=== PATIENT | male | born 1940 | race Caucasian/White ===

== ENCOUNTER 2024-05-02 18:24 | Inpatient (IN) | payer OTHER, MEDICARE ==
[~2024-05-02] VITALS: Ht 190.5 cm; Wt 61.2 kg
[~2024-05-02 18:24] MED LIST: ASPI-1155 PO; B-COMPLEX PO; DILT240C95 PO; DUTA0.5C PO; FINA5TAB11 PO; FISH OIL PO; GEMF600T89 PO; MULTI VIT PO; NITRO SL; VIT E PO
[2024-05-02 18:30] VITALS: BP_SYST 115; PULSE 120; RESP 18; TEMP 98.3; O2SAT 97
[2024-05-02 19:15] LABS: HEMATOCRIT 38.6 % (36-54); MEAN CORPUSCULAR HEMOGLOBIN 32 pg (27-31); MEAN CORPUSCULAR HGB CONC 34 % (32-36); MEAN CORPUSCULAR VOLUME 95 fL (79.0-98.0); PLATELET COUNT (AUTO) 248 K/uL (130-430); RED BLOOD CELL COUNT(AUTO) 4.07 MIL/uL (4.2-6.2); RED CELL DISTRIBUTION WIDTH 14.6 % (9.0-15.0); WHITE BLOOD COUNT (AUTO) 22.9 K/uL (4.8-10.8)
[2024-05-02 19:29] LABS: BAND % (MANUAL) 3 % (0-6); BASOPHILS % (MANUAL) 0 % (0-2); EOSINOPHILS % (MANUAL) 0 % (0-7); LYMPHOCYTES % (MANUAL) 1 % (20-46); MONOCYTES % (MANUAL) 0 % (0-11); PLATELET ESTIMATE ADEQUATE (ADEQUATE)
[2024-05-02 19:31] LABS: PROTHROMBIN TIME 20.1 SECS (9.5-12.5)
[2024-05-02 19:45] LABS: ANION GAP 14 (5-15); CALCIUM 9.2 mg/dL (8.4-11.0); CARBON DIOXIDE 22 mmol/L (23-29); CHLORIDE 102 mmol/L (98-107); CREATININE 1.64 mg/dL (0.55-1.30); GLUCOSE 109 mg/dL (74-106); POTASSIUM 3.7 mmol/L (3.5-5.1); SODIUM SERUM 138 mmol/L (136-145); UREA NITROGEN, BLOOD 65 mg/dL (8-21)
[2024-05-02] MEDS ORDERED: PIPERACILLIN/TAZOBACTAM 3.375 GM/VIAL (ZOSYN) IV ONE (20:33)
[2024-05-02] MEDS: levETIRAcetam 500 MG IV PREMIX 100 ML IV ONE (20:56)
[2024-05-02] MEDS: NS 500 ML IV ONE (20:56)
[2024-05-02] MEDS: NACL 0.9% 1,000 ML IV ONE (20:56)
[2024-05-02] MEDS: PIPERACILLIN/TAZO 3.375 GM in NS 50 ML IV ONE (20:57)
[2024-05-02] MEDS: NITROGLYCERIN 1 INCH (GM) OINT. TP ONE (21:09)
[2024-05-02] MEDS ORDERED: LIOT5TAB11 PO (22:48)
[2024-05-02] MEDS ORDERED: LEVO88TA5 PO (22:48)
[2024-05-02] MEDS ORDERED: SIMV5TAB59 PO (22:48)
[2024-05-02] MEDS ORDERED: DABI150C PO (22:48)
[2024-05-02] MEDS ORDERED: NALOXONE HCL 0.4 MG/ML AMP (NARCAN) IVP PRN ×2 (23:45)
[2024-05-02] MEDS ORDERED: ONDANSETRON HCL 4 MG/2 ML VIAL IVP PRN (23:45)
[2024-05-02 23:51] LABS: BILIRUBIN,URINE NEGATIVE (NEGATIVE); COLOR,URINE YELLOW (YELLOW); GLUCOSE,URINE NEGATIVE (NEGATIVE); KETONES,URINE 1+ (NEGATIVE); LEUKOCYTE ESTERASE ,URINE NEGATIVE (NEGATIVE); NITRITE, URINE NEGATIVE (NEGATIVE); PH,URINE 5.5 (5.0-8.0); PROTEIN URINE TRACE (NEGATIVE); UROBILINOGEN,URINE 0.2 (0.2-1.0)
[2024-05-03] VITALS (35 sets, daily range): BP systolic 107–153; PULSE 84–119; RESP 13–35; TEMP 96–98.2; O2SAT 88–100
[2024-05-03 00:17] LABS: BLOOD, URINE 1+ (NEGATIVE); CLARITY/URINE SLIGHTLY CLOUDY (CLEAR)
[2024-05-03 00:19] LABS: WBC,URINE 0-3 /HPF (0-3)
[2024-05-03 00:20] LABS: BACTERIA,URINE RARE /HPF (None Seen)
[2024-05-03] MEDS: D5/0.45 NS 1,000 ML IV SCH (02:25)
[2024-05-03] MEDS: PIPERACILLIN/TAZOBACTAM 3.375 GM/VIAL (ZOSYN) IV ONE (02:25)
[2024-05-03] MEDS: ALBUTEROL SULFATE 0.083% 2.5 MG/3 ML VIAL.NEB INH SCH (03:02)
[2024-05-03] MEDS: IPRATROPIUM BROM 0.5 MG/2.5 ML VIAL.NEB (ATROVENT) INH SCH (03:02)
[2024-05-03] MEDS: PIPERACILLIN/TAZO 3.375/DEX-IS 50 ML IV SCH (03:39)
[2024-05-03] MEDS: HYDROcodone/ACETAMIN 10-325 MG TAB PO PRN (04:44)
[2024-05-03 05:00] LABS: BASOPHILS % (AUTO) 0.1 % (0.0-2.0); EOSINOPHILS % (AUTO) 0.2 % (0.0-4.0); HEMATOCRIT 33.4 % (36-54); HEMOGLOBIN 11.1 g/dL (14.0-18.0); LYMPHOCYTES # (AUTO) 0.4 K/uL (1.0-5.5); MEAN CORPUSCULAR HEMOGLOBIN 32 pg (27-31); MEAN CORPUSCULAR HGB CONC 33 % (32-36); MEAN CORPUSCULAR VOLUME 96 fL (79.0-98.0); MONOCYTES # (AUTO) 0.6 K/uL (0.0-1.0); MONOCYTES % (AUTO) 2.9 % (1.7-9.3); NEUTROPHILS # (AUTO) 18.6 K/uL (1.8-7.7); NEUTROPHILS % (AUTO) 94.8 % (40.0-70.0); PLATELET COUNT (AUTO) 195 K/uL (130-430); RED BLOOD CELL COUNT(AUTO) 3.47 MIL/uL (4.2-6.2); RED CELL DISTRIBUTION WIDTH 14.5 % (9.0-15.0); WHITE BLOOD COUNT (AUTO) 19.6 K/uL (4.8-10.8)
[2024-05-03 05:47] LABS: ALANINE AMINOTRANSFERASE 171 U/L (12-78); ALBUMIN 2.3 g/dL (3.4-4.8); ANION GAP 13 (5-15); ASPARTATE AMINOTRANSFERASE 235 U/L (10-37); CALCIUM 8.6 mg/dL (8.4-11.0); CARBON DIOXIDE 22 mmol/L (23-29); CHLORIDE 107 mmol/L (98-107); CREATINE KINASE, TOTAL 2224 U/L (39-308); CREATININE 1.22 mg/dL (0.55-1.30); GLUCOSE 126 mg/dL (74-106); PHOSPHORUS 3.4 mg/dL (2.7-4.5); POTASSIUM 3.5 mmol/L (3.5-5.1); SODIUM SERUM 142 mmol/L (136-145); TOTAL BILIRUBIN 1.1 mg/dL (0.0-1.0); TOTAL PROTEIN, SERUM 5.5 g/dL (6.4-8.3); UREA NITROGEN, BLOOD 50 mg/dL (8-21)
[2024-05-03 06:44] LABS: CKMB RELATIVE INDEX 1.3 (0.0-2.9)
[2024-05-03] MEDS: LEVOTHYROXINE SODIUM 0.088 MG TABLET PO SCH (07:00)
[2024-05-03] MEDS: DABIGATRAN ETEXILATE MESYLATE 75 MG CAPSULE PO SCH (09:00)
[2024-05-03] MEDS ORDERED: LIOTHYRONINE SODIUM PO SCH (09:00)
[2024-05-03] MEDS: ASPIRIN 81 MG TAB.CHEW PO SCH (09:00)
[2024-05-03 12:30] LABS: BILIRUBIN,URINE NEGATIVE (NEGATIVE); BLOOD, URINE 3+ (NEGATIVE); COLOR,URINE YELLOW (YELLOW); GLUCOSE,URINE NEGATIVE (NEGATIVE); KETONES,URINE TRACE (NEGATIVE); LEUKOCYTE ESTERASE ,URINE NEGATIVE (NEGATIVE); NITRITE, URINE NEGATIVE (NEGATIVE); PROTEIN URINE NEGATIVE (NEGATIVE); UROBILINOGEN,URINE 0.2 (0.2-1.0)
[2024-05-03 12:32] LABS: CLARITY/URINE SLIGHTLY HAZY (CLEAR)
[2024-05-03 12:49] LABS: WBC,URINE 0-3 /HPF (0-3)
[2024-05-03 12:50] LABS: BACTERIA,URINE MODERATE /HPF (None Seen)
[2024-05-03 12:51] LABS: URINE AMORPHOUS URATE 1+ /HPF (None Seen)
[2024-05-03 12:57] LABS: COVID19 ANTIGEN SOFIA FIA NEGATIVE (NEGATIVE); INFLUENZA TYPE A Negative (NEGATIVE); INFLUENZA TYPE B NEGATIVE (NEGATIVE)
[2024-05-03 14:19] LABS: BASOPHILS % (AUTO) 0.2 % (0.0-2.0); HEMATOCRIT 33.5 % (36-54); LYMPHOCYTES # (AUTO) 0.2 K/uL (1.0-5.5); LYMPHOCYTES % (AUTO) 1.5 % (20.5-51.5); MEAN CORPUSCULAR HEMOGLOBIN 32 pg (27-31); MEAN CORPUSCULAR HGB CONC 33 % (32-36); MEAN CORPUSCULAR VOLUME 96 fL (79.0-98.0); MONOCYTES # (AUTO) 0.6 K/uL (0.0-1.0); MONOCYTES % (AUTO) 3.9 % (1.7-9.3); NEUTROPHILS # (AUTO) 13.6 K/uL (1.8-7.7); NEUTROPHILS % (AUTO) 94.4 % (40.0-70.0); PLATELET COUNT (AUTO) 178 K/uL (130-430); RED BLOOD CELL COUNT(AUTO) 3.48 MIL/uL (4.2-6.2); RED CELL DISTRIBUTION WIDTH 14.6 % (9.0-15.0); WHITE BLOOD COUNT (AUTO) 14.4 K/uL (4.8-10.8)
[2024-05-03 14:43] LABS: INR 1.3 (0.80-1.20); PROTHROMBIN TIME 13.3 SECS (9.5-12.5)
[2024-05-03] MEDS: CEFEPIME 2 GM in D5W 100 ML IV SCH (20:39)
[2024-05-03] MEDS ORDERED: SIMVASTATIN 10 MG TABLET PO SCH (21:00)
[2024-05-03 22:04] LABS: URINE SODIUM, RANDOM 10 mmol/L (40-220)
[2024-05-03] MEDS: metroNIDAZOLE 500 mg/NS 100 ML IV SCH (22:04)
[2024-05-04] VITALS (18 sets, daily range): BP systolic 107–129; PULSE 97–122; RESP 13–22; TEMP 96–97.5; O2SAT 91–98
[2024-05-04] MEDS: LORazepam 2 MG/ML VIAL IVP PRN (00:25)
[2024-05-04 06:53] LABS: ALANINE AMINOTRANSFERASE 177 U/L (12-78); ALBUMIN 2.3 g/dL (3.4-4.8); ANION GAP 6 (5-15); ASPARTATE AMINOTRANSFERASE 144 U/L (10-37); CALCIUM 9.1 mg/dL (8.4-11.0); CARBON DIOXIDE 29 mmol/L (23-29); CHLORIDE 108 mmol/L (98-107); CREATINE KINASE, TOTAL 658 U/L (39-308); GLUCOSE 163 mg/dL (74-106); POTASSIUM 3.7 mmol/L (3.5-5.1); SODIUM SERUM 143 mmol/L (136-145); TOTAL BILIRUBIN 0.6 mg/dL (0.0-1.0); UREA NITROGEN, BLOOD 29 mg/dL (8-21)
[2024-05-04 07:13] LABS: BASOPHILS % (AUTO) 0.1 % (0.0-2.0); EOSINOPHILS % (AUTO) 0.1 % (0.0-4.0); HEMATOCRIT 35.8 % (36-54); HEMOGLOBIN 12.3 g/dL (14.0-18.0); LYMPHOCYTES # (AUTO) 0.4 K/uL (1.0-5.5); LYMPHOCYTES % (AUTO) 2.4 % (20.5-51.5); MEAN CORPUSCULAR HEMOGLOBIN 33 pg (27-31); MEAN CORPUSCULAR HGB CONC 34 % (32-36); MEAN CORPUSCULAR VOLUME 95 fL (79.0-98.0); MONOCYTES # (AUTO) 1.2 K/uL (0.0-1.0); MONOCYTES % (AUTO) 7.6 % (1.7-9.3); NEUTROPHILS % (AUTO) 89.8 % (40.0-70.0); PLATELET COUNT (AUTO) 195 K/uL (130-430); RED BLOOD CELL COUNT(AUTO) 3.77 MIL/uL (4.2-6.2); RED CELL DISTRIBUTION WIDTH 14.7 % (9.0-15.0); WHITE BLOOD COUNT (AUTO) 15.6 K/uL (4.8-10.8)
[2024-05-04 07:53] LABS: ERYTHROCYTE SEDIMENTATION RATE 69 MM/HR (0-15)
[2024-05-04 08:20] LABS: CKMB RELATIVE INDEX 1.7 (0.0-2.9)
[2024-05-04] MEDS: METOPROLOL SUCCINATE 25 MG TAB.SR.24H (TOPROL XL) PO SCH (21:39)
[2024-05-05] VITALS (10 sets, daily range): BP systolic 97–149; PULSE 58–100; RESP 14–20; TEMP 96.9–98.7; O2SAT 94–100
[2024-05-05] MEDS: ACETAMINOPHEN 325 MG TABLET PO PRN (00:52)
[2024-05-05 05:19] LABS: ALANINE AMINOTRANSFERASE 133 U/L (12-78); ALBUMIN 1.9 g/dL (3.4-4.8); ANION GAP 5 (5-15); ASPARTATE AMINOTRANSFERASE 94 U/L (10-37); CALCIUM 8.7 mg/dL (8.4-11.0); CARBON DIOXIDE 29 mmol/L (23-29); CHLORIDE 108 mmol/L (98-107); CREATININE 0.72 mg/dL (0.55-1.30); GLUCOSE 150 mg/dL (74-106); POTASSIUM 3.9 mmol/L (3.5-5.1); SODIUM SERUM 142 mmol/L (136-145); TOTAL BILIRUBIN 0.8 mg/dL (0.0-1.0)
[2024-05-05 05:20] LABS: PHOSPHORUS 1.2 mg/dL (2.7-4.5)
[2024-05-05 05:21] LABS: EOSINOPHILS % (AUTO) 0.1 % (0.0-4.0); HEMATOCRIT 31.5 % (36-54); HEMOGLOBIN 10.5 g/dL (14.0-18.0); LYMPHOCYTES # (AUTO) 0.3 K/uL (1.0-5.5); LYMPHOCYTES % (AUTO) 3.5 % (20.5-51.5); MEAN CORPUSCULAR HEMOGLOBIN 32 pg (27-31); MEAN CORPUSCULAR HGB CONC 33 % (32-36); MEAN CORPUSCULAR VOLUME 96 fL (79.0-98.0); MONOCYTES # (AUTO) 0.8 K/uL (0.0-1.0); MONOCYTES % (AUTO) 9.5 % (1.7-9.3); NEUTROPHILS # (AUTO) 7.6 K/uL (1.8-7.7); NEUTROPHILS % (AUTO) 86.9 % (40.0-70.0); PLATELET COUNT (AUTO) 166 K/uL (130-430); RED BLOOD CELL COUNT(AUTO) 3.26 MIL/uL (4.2-6.2); RED CELL DISTRIBUTION WIDTH 14.7 % (9.0-15.0); WHITE BLOOD COUNT (AUTO) 8.8 K/uL (4.8-10.8)
[2024-05-05 05:39] LABS: ERYTHROCYTE SEDIMENTATION RATE 31 MM/HR (0-15)
[2024-05-05 06:26] LABS: UREA NITROGEN, BLOOD 23 mg/dL (8-21)
[2024-05-05 06:48] LABS: CKMB RELATIVE INDEX 1.5 (0.0-2.9)
[2024-05-05] MEDS ORDERED: OMEG-158 PO (07:48)
[2024-05-05] MEDS ORDERED: CALC-1312 PO (07:48)
[2024-05-05] MEDS ORDERED: MULT80TA PO (07:48)
[2024-05-05] MEDS ORDERED: BIOT5TAB PO (07:48)
[2024-05-05] MEDS ORDERED: ASCO500T19 PO (07:48)
[2024-05-05] MEDS ORDERED: PSYL575P22 PO (07:48)
[2024-05-05 09:07] LABS: HEPATITIS A AB, IgM Negative (Negative); HEPATITIS B CORE AB, IgM Negative (Negative); HEPATITIS B SURFACE AG Confirm. indicated (Negative); HEPATITIS C VIRUS AB Non Reactive (Non Reactive)
[2024-05-05 15:06] LABS: HEPATITIS B SURFACE AG CONF Negative (.)
[2024-05-05] MEDS ORDERED: LEVO88TA2 PO (15:59)
[2024-05-06] VITALS (11 sets, daily range): BP systolic 137–153; PULSE 60–89; RESP 16–17; TEMP 96.4–98.6; O2SAT 92–98
[2024-05-06 06:34] LABS: BASOPHILS % (AUTO) 0.1 % (0.0-2.0); EOSINOPHILS % (AUTO) 0.1 % (0.0-4.0); HEMATOCRIT 38.4 % (36-54); HEMOGLOBIN 12.7 g/dL (14.0-18.0); LYMPHOCYTES # (AUTO) 0.4 K/uL (1.0-5.5); LYMPHOCYTES % (AUTO) 5.4 % (20.5-51.5); MEAN CORPUSCULAR HEMOGLOBIN 32 pg (27-31); MEAN CORPUSCULAR HGB CONC 33 % (32-36); MEAN CORPUSCULAR VOLUME 96 fL (79.0-98.0); MONOCYTES # (AUTO) 0.9 K/uL (0.0-1.0); MONOCYTES % (AUTO) 11.5 % (1.7-9.3); NEUTROPHILS # (AUTO) 6.5 K/uL (1.8-7.7); NEUTROPHILS % (AUTO) 82.9 % (40.0-70.0); PLATELET COUNT (AUTO) 237 K/uL (130-430); RED BLOOD CELL COUNT(AUTO) 3.99 MIL/uL (4.2-6.2); RED CELL DISTRIBUTION WIDTH 14.6 % (9.0-15.0); WHITE BLOOD COUNT (AUTO) 7.8 K/uL (4.8-10.8)
[2024-05-06 06:39] LABS: ERYTHROCYTE SEDIMENTATION RATE 27 MM/HR (0-15)
[2024-05-06 06:43] LABS: ANION GAP 8 (5-15); CALCIUM 9.1 mg/dL (8.4-11.0); CARBON DIOXIDE 29 mmol/L (23-29); CHLORIDE 105 mmol/L (98-107); CREATININE 0.65 mg/dL (0.55-1.30); GLUCOSE 132 mg/dL (74-106); POTASSIUM 3.5 mmol/L (3.5-5.1); SODIUM SERUM 142 mmol/L (136-145); UREA NITROGEN, BLOOD 15 mg/dL (8-21)
[2024-05-06 07:20] LABS: CKMB RELATIVE INDEX 1.8 (0.0-2.9)
[2024-05-06 08:10] LABS: ALBUMIN 2.4 g/dL (3.4-4.8); BILIRUBIN,DIRECT 0.6 mg/dL (0.0-0.3); TOTAL BILIRUBIN 1.4 mg/dL (0.0-1.0); TOTAL PROTEIN, SERUM 5.2 g/dL (6.4-8.3)
[2024-05-07] VITALS (9 sets, daily range): BP systolic 101–137; PULSE 71–91; RESP 16–20; TEMP 96.2–98.5; O2SAT 94–97
[2024-05-07 06:58] LABS: BASOPHILS % (AUTO) 0.1 % (0.0-2.0); EOSINOPHILS # (AUTO) 0.1 K/uL (0.0-0.4); EOSINOPHILS % (AUTO) 1.3 % (0.0-4.0); HEMOGLOBIN 11.8 g/dL (14.0-18.0); LYMPHOCYTES # (AUTO) 0.6 K/uL (1.0-5.5); LYMPHOCYTES % (AUTO) 8.5 % (20.5-51.5); MEAN CORPUSCULAR HEMOGLOBIN 32 pg (27-31); MEAN CORPUSCULAR HGB CONC 34 % (32-36); MEAN CORPUSCULAR VOLUME 95 fL (79.0-98.0); MONOCYTES # (AUTO) 1.1 K/uL (0.0-1.0); MONOCYTES % (AUTO) 15.5 % (1.7-9.3); NEUTROPHILS # (AUTO) 5.1 K/uL (1.8-7.7); NEUTROPHILS % (AUTO) 74.6 % (40.0-70.0); PLATELET COUNT (AUTO) 234 K/uL (130-430); RED BLOOD CELL COUNT(AUTO) 3.68 MIL/uL (4.2-6.2); RED CELL DISTRIBUTION WIDTH 14.9 % (9.0-15.0); WHITE BLOOD COUNT (AUTO) 6.8 K/uL (4.8-10.8)
[2024-05-07 07:10] LABS: ALANINE AMINOTRANSFERASE 148 U/L (12-78); ALBUMIN 1.9 g/dL (3.4-4.8); ANION GAP 5 (5-15); ASPARTATE AMINOTRANSFERASE 89 U/L (10-37); CALCIUM 8.9 mg/dL (8.4-11.0); CARBON DIOXIDE 32 mmol/L (23-29); CHLORIDE 104 mmol/L (98-107); CREATINE KINASE, TOTAL 163 U/L (39-308); CREATININE 0.56 mg/dL (0.55-1.30); GLUCOSE 131 mg/dL (74-106); POTASSIUM 3.2 mmol/L (3.5-5.1); SODIUM SERUM 141 mmol/L (136-145); TOTAL BILIRUBIN 0.8 mg/dL (0.0-1.0); UREA NITROGEN, BLOOD 16 mg/dL (8-21)
[2024-05-07 07:42] LABS: ERYTHROCYTE SEDIMENTATION RATE 45 MM/HR (0-15)
[2024-05-07] MEDS ORDERED: NALOXONE HCL 0.4 MG/ML AMP (NARCAN) IVP PRN (09:15)
[2024-05-07] MEDS ORDERED: KCL 40 mEq in 100 mL (PREMIX) 100 ML IV ONE (09:15)
[2024-05-07] MEDS ORDERED: MORPHINE 2 MG/ML INJ. SYRINGE IVP PRN (09:15)
[2024-05-07] MEDS: POTASSIUM CHLORIDE 20 mEq in 100 mL (PREMIX) 100 ML x 2 doses IV SCH (11:30)
[2024-05-07] MEDS: POTASSIUM CHLORIDE 40 MEQ, LIDOCAINE JECT 2% PF 100 MG 50 MG in NS 250 ML IV ONE (16:47)
[2024-05-07] MEDS: HYDROcodone/ACETAMIN 5-325 MG TAB (NORCO/ VICODIN) PO PRN (21:27)
[2024-05-07] MEDS: MORPHINE 4 MG INJ. 4 MG/ML VIAL IVP PRN (23:55)
[2024-05-08] VITALS (11 sets, daily range): BP systolic 108–131; PULSE 78–87; RESP 16–18; TEMP 97.2–98.1; O2SAT 92–98
[2024-05-08] MEDS: MELATONIN 5 MG TABLET PO PRN (01:15)
[2024-05-08 07:18] LABS: BASOPHILS % (AUTO) 0.2 % (0.0-2.0); EOSINOPHILS # (AUTO) 0.2 K/uL (0.0-0.4); EOSINOPHILS % (AUTO) 2.8 % (0.0-4.0); HEMOGLOBIN 11.1 g/dL (14.0-18.0); LYMPHOCYTES # (AUTO) 0.6 K/uL (1.0-5.5); LYMPHOCYTES % (AUTO) 8.9 % (20.5-51.5); MEAN CORPUSCULAR HEMOGLOBIN 32 pg (27-31); MEAN CORPUSCULAR HGB CONC 34 % (32-36); MEAN CORPUSCULAR VOLUME 96 fL (79.0-98.0); MONOCYTES # (AUTO) 1.1 K/uL (0.0-1.0); MONOCYTES % (AUTO) 17.1 % (1.7-9.3); NEUTROPHILS # (AUTO) 4.7 K/uL (1.8-7.7); PLATELET COUNT (AUTO) 260 K/uL (130-430); RED BLOOD CELL COUNT(AUTO) 3.44 MIL/uL (4.2-6.2); RED CELL DISTRIBUTION WIDTH 14.6 % (9.0-15.0); WHITE BLOOD COUNT (AUTO) 6.6 K/uL (4.8-10.8)
[2024-05-08 07:43] LABS: ALANINE AMINOTRANSFERASE 124 U/L (12-78); ALBUMIN 1.8 g/dL (3.4-4.8); ANION GAP 5 (5-15); ASPARTATE AMINOTRANSFERASE 69 U/L (10-37); CALCIUM 8.8 mg/dL (8.4-11.0); CARBON DIOXIDE 30 mmol/L (23-29); CHLORIDE 107 mmol/L (98-107); CREATININE 0.58 mg/dL (0.55-1.30); GLUCOSE 118 mg/dL (74-106); POTASSIUM 3.9 mmol/L (3.5-5.1); SODIUM SERUM 142 mmol/L (136-145); TOTAL BILIRUBIN 0.6 mg/dL (0.0-1.0); TOTAL PROTEIN, SERUM 4.9 g/dL (6.4-8.3); UREA NITROGEN, BLOOD 15 mg/dL (8-21)
[2024-05-08 08:00] LABS: ERYTHROCYTE SEDIMENTATION RATE 36 MM/HR (0-15)
[2024-05-09] VITALS (11 sets, daily range): BP systolic 106–136; PULSE 64–82; RESP 17–18; TEMP 97.3–98.2; O2SAT 92–99
[2024-05-09 09:07] LABS: BASOPHILS % (AUTO) 0.2 % (0.0-2.0); EOSINOPHILS # (AUTO) 0.2 K/uL (0.0-0.4); EOSINOPHILS % (AUTO) 2.6 % (0.0-4.0); HEMATOCRIT 35.5 % (36-54); HEMOGLOBIN 11.6 g/dL (14.0-18.0); LYMPHOCYTES # (AUTO) 0.7 K/uL (1.0-5.5); LYMPHOCYTES % (AUTO) 8.7 % (20.5-51.5); MEAN CORPUSCULAR HEMOGLOBIN 32 pg (27-31); MEAN CORPUSCULAR HGB CONC 33 % (32-36); MEAN CORPUSCULAR VOLUME 97 fL (79.0-98.0); MONOCYTES # (AUTO) 1.3 K/uL (0.0-1.0); MONOCYTES % (AUTO) 15.7 % (1.7-9.3); NEUTROPHILS # (AUTO) 5.9 K/uL (1.8-7.7); NEUTROPHILS % (AUTO) 72.8 % (40.0-70.0); PLATELET COUNT (AUTO) 289 K/uL (130-430); RED BLOOD CELL COUNT(AUTO) 3.65 MIL/uL (4.2-6.2); RED CELL DISTRIBUTION WIDTH 15.1 % (9.0-15.0); WHITE BLOOD COUNT (AUTO) 8.1 K/uL (4.8-10.8)
[2024-05-09 09:19] LABS: ALANINE AMINOTRANSFERASE 114 U/L (12-78); ANION GAP 2 (5-15); ASPARTATE AMINOTRANSFERASE 53 U/L (10-37); CALCIUM 8.8 mg/dL (8.4-11.0); CARBON DIOXIDE 33 mmol/L (23-29); CHLORIDE 105 mmol/L (98-107); CREATININE 0.71 mg/dL (0.55-1.30); GLUCOSE 155 mg/dL (74-106); POTASSIUM 3.8 mmol/L (3.5-5.1); SODIUM SERUM 140 mmol/L (136-145); TOTAL BILIRUBIN 0.6 mg/dL (0.0-1.0); TOTAL PROTEIN, SERUM 5.2 g/dL (6.4-8.3); UREA NITROGEN, BLOOD 17 mg/dL (8-21)
[2024-05-10] VITALS (11 sets, daily range): BP systolic 97–107; PULSE 63–85; RESP 16; TEMP 97.2–98; O2SAT 93–98
[2024-05-10] MEDS: NORMAL SALINE 5 ML DISP.SYRIN IVF SCH (14:00)
== END 2024-05-10 16:52 | DRG 871 ==
LOC: SED 18:24 → SIC 22:36 → STU 05-04 18:31
PROVIDERS: ADMIT Preventive Medicine Preventive Medicine/Occupational Environmental Medicine; ATTEND Preventive Medicine Preventive Medicine/Occupational Environmental Medicine
DX: A41.9 Sepsis, unspecified organism (principal); E43 Unspecified severe protein-calorie malnutrition; R65.21 Severe sepsis with septic shock; J69.0 Pneumonitis due to inhalation of food and vomit; I21.4 Non-ST elevation (NSTEMI) myocardial infarction; N39.0 Urinary tract infection, site not specified; M62.82 Rhabdomyolysis; N17.9 Acute kidney failure, unspecified; K80.00 Calculus of gallbladder with acute cholecystitis without obstruction; Z68.1 Body mass index [BMI] 19.9 or less, adult; Z20.822 Contact with and (suspected) exposure to COVID-19; D64.9 Anemia, unspecified; E78.5 Hyperlipidemia, unspecified; E88.09 Other disorders of plasma-protein metabolism, not elsewhere classified; I11.0 Hypertensive heart disease with heart failure; I50.9 Heart failure, unspecified; E87.6 Hypokalemia; E83.39 Other disorders of phosphorus metabolism; I25.10 Atherosclerotic heart disease of native coronary artery without angina pectoris; I48.91 Unspecified atrial fibrillation; Z79.01 Long term (current) use of anticoagulants; Z95.5 Presence of coronary angioplasty implant and graft; Z86.16 Personal history of COVID-19; Z79.82 Long term (current) use of aspirin; Z79.899 Other long term (current) drug therapy; Z95.0 Presence of cardiac pacemaker; Z88.0 Allergy status to penicillin
CPT/HCPCS: 36415; 70450-TC; 71045; 72131; 73552; 76700; 76770; 78226; 80048; 80053; 80074; 80076; 81000; 81001; 81015; 82550; 82553; 82570; 83605; 83735; 83880; 84100; 84302; 84484; 85007; 85025; 85027; 85610; 85651; 85730; 86738; 86886; 86900; 86901; 87040; 87086; 87449; 92610-GN; 93005; 93306; 94070; 94640; 94760; 96365; 97110-GP; 97112-GP; 97530-GP; 99291; A9537; G0378; J0692; J1953; J2060; J2270; J2543; J3480; J3490; J7050; J7060